=== PATIENT | female | born 1965 | race Caucasian/White ===

== ENCOUNTER 2017-03-10 12:10 | Emergency (ER) | payer OTHER, SELFPAY ==
[2017-03-10 12:42] LABS: #Basophils 0.1 thou/uL (0.0-0.2); #Eosinphils 0.2 thou/uL (0.0-0.7); #Lymphocytes 1.2 thou/uL (1.20-3.40); #Monocytes 0.8 thou/uL (0.11-0.59); #Neutrophils 4.7 thou/uL (1.40-6.50); %Basophils 0.7 % (0.0-1.0); %Eosinophils 2.3 % (0.0-10.0); %Lymphocytes 17.5 % (21.0-51.0); %Monocytes 10.9 % (0.0-10.0); Mean Platelet Volume 6.4 fL (7.4-10.4); Red Blood Cell (RBC) Count 4.41 mill/uL (4.20-5.40); White Blood Cell (WBC) Count 6.9 thou/uL (4.8-10.8)
[2017-03-10 13:07] LABS: ALT (SGPT) 28 U/L (8-55); AST (SGOT) 38 U/L (5-34); Alkaline Phosphatase 172 U/L (40-150); Anion Gap 12 mmol/L (10-20); BUN (Urea Nitrogen) 4 mg/dL (9.8-20.1); Bilirubin, Total 1.2 mg/dL (0.2-1.2); Calc. Creatinine Clearance 0 mL/min (70-130); Carbon Dioxide 30 mmol/L (22-29); Chloride 102 mmol/L (98-107); Estimated GFR-MDRD 59; Globulin 3.6 g/dL (2.4-3.5); Salicylate Less than 8.0 mg/dL (15.0-30.0)
[2017-03-10 14:11] LABS: Bilirubin Negative (Negative); Blood, Urine Negative (Negative); Glucose, Urine (Dipstick) Negative (Negative); Ketone, Urine Negative (Negative); Nitrite Negative (Negative); Protein, Urine (Dipstick) Negative (Neg-Trace); Urobilinogen 0.2 mg/dL (0.2-1.0)
[2017-03-10 14:18] LABS: Bacteria/HPF None Seen HPF (None Seen); Hyaline Casts/LPF 0-3 HYALINE CAST LPF (0-3 Hyaline); RBC/HPF 0-3 HPF (0-3); Squamous Epithelial 0-3 HPF (0-3)
[2017-03-10 14:23] LABS: Amphetamine Not Detected (NotDetected); Methadone Not Detected (NotDetected); Methamphetamine Not Detected (NotDetected)
[2017-03-10] MEDS ORDERED: Ibuprofen 800 MG TAB ONE (19:34)
== END 2017-03-10 20:23 | disposition home or self-care (01) ==
LOC: ERS 12:10
DX: F31.9 Bipolar disorder, unspecified (principal); K21.9 Gastro-esophageal reflux disease without esophagitis; K74.60 Unspecified cirrhosis of liver; F41.9 Anxiety disorder, unspecified; Z79.891 Long term (current) use of opiate analgesic; Z79.899 Other long term (current) drug therapy
CPT/HCPCS: 36415; 80053; 80306; 80307; 81003; 81015; 84443; 85025; 93005

== ENCOUNTER 2017-09-30 01:39 | Inpatient (IN) | payer SELFPAY ==
[2017-09-30] MEDS ORDERED: Morphine 4 MG/ML VIAL ONE (02:51)
[2017-09-30] MEDS ORDERED: Morphine 4 MG/ML VIAL SLOW IVP PRN (04:35)
[2017-09-30 06:03] VITALS: BMI 31.8
[2017-09-30 06:05] LABS: Lactic Acid 3.2 mmol/L (0.5-2.2)
[2017-09-30 06:08] LABS: Anion Gap 9 mmol/L (10-20); BUN (Urea Nitrogen) 4 mg/dL (9.8-20.1); Calc. Creatinine Clearance 122 mL/min (70-130); Calcium 8.3 mg/dL (7.8-10.44); Carbon Dioxide 34 mmol/L (22-29); Chloride 96 mmol/L (98-107); Estimated GFR-MDRD 83; Glucose 101 mg/dL (70-105); Magnesium 1.8 mg/dL (1.6-2.6); Phosphorus 2.9 mg/dL (2.3-4.7); Potassium 3.3 mmol/L (3.5-5.1); Sodium 136 mmol/L (136-145)
[2017-09-30] MEDS ORDERED: Chloraseptic Spray 180 ml Bottle PO PRN (07:02)
[2017-09-30] MEDS ORDERED: Senokot 8.6 MG TAB PO PRN (07:02)
[2017-09-30] MEDS ORDERED: Sodium Chloride 0.65% Nasal 44 ML BOT EA NARE PRN (07:02)
[2017-09-30] MEDS ORDERED: Loperamide HCl 2 MG CAP PO PRN (07:02)
[2017-09-30] MEDS ORDERED: Zolpidem Tartrate 5 MG TAB PO PRN (07:02)
[2017-09-30] MEDS ORDERED: Ondansetron ODT 4 MG TAB PO PRN (07:02)
[2017-09-30] MEDS ORDERED: Milk Of Magnesia 30 ML UDCUP PO PRN (07:02)
[2017-09-30] MEDS ORDERED: Eucerin (Mineral Oil/Petrolatum,White) 30 gm Jar TOP PRN (07:02)
[2017-09-30] MEDS ORDERED: Ondansetron HCl/PF 4 MG/2 ML Vial IVP PRN (07:02)
[2017-09-30] MEDS ORDERED: Loratadine 10 MG TAB PO PRN (07:02)
[2017-09-30] MEDS ORDERED: Mag-Al 1200 mg/1200 mg/30 ML UDCUP PO PRN (07:02)
[2017-09-30] MEDS ORDERED: Acetaminophen 325 MG TAB PO PRN (07:02)
[2017-09-30] MEDS ORDERED: Artificial Tears 18 DROP/0.9 ML EA EYE PRN (07:02)
[2017-09-30] MEDS ORDERED: hydrALAZINE 20 MG/ML VIAL SLOW IVP PRN (07:02)
[2017-09-30] MEDS ORDERED: cefTRIAXone\\ROCEPHIN 1 GM in Sodium Chloride 0.9% 100 ML IVPB SCH (07:15)
[2017-09-30] MEDS: cefTRIAXone\\ROCEPHIN 1 GM, Syringe 0.4 ML in Sterile Water 9.6 ML SLOW IVP SCH (08:11)
[2017-09-30] MEDS: Cyanocobalamin (Vitamin B-12) 1,000 MCG TAB PO SCH (08:16)
[2017-09-30] MEDS: clonazePAM 0.5 MG TAB PO SCH ×2 (08:17→19:58)
[2017-09-30] MEDS: Famotidine 20 MG TAB PO SCH ×2 (08:17→19:58)
[2017-09-30] MEDS: Venlafaxine HCl XR 150 MG CAP PO SCH (08:20)
[2017-09-30] MEDS: Saccharomyces boulardii 250 MG CAP PO SCH (08:21)
[2017-09-30] MEDS: Diabetic Tussin 200 MG/10 ML UDCUP PO PRN ×2 (08:35→19:58)
--- NOTE | 2017-09-30 10:57 | HP ---
PRIMARY CARE PHYSICIAN: [facility] call admission. MARYAM FOR ADMISSION: Transfer from [facility] for suspected pneumonia, urinary tract in fection, and diarrhea. HISTORY OF PRESENT ILLNESS: A 52-year-old female who has underlying history of chronic hepatitis C a s well as underlying history of anxiety and depression who initially went to [facility]. She reported in triage area that she was having abdominal pain and patient gave history of high grade fever and diarrhea for the last several days. Patient reports that she was having diarrhea almost 20 times for the last 7 days. She also describes that diarrhea was black in nature. She did not took Pepto-Bismol. The patient was also having feve r every day up to 103.1 for last 7 days off and on. The patient reported increased frequency of urin ation, but she denied any hematuria or dysuria. She was also having generalized 10/10 abdominal pain . Patient denies any recent antibiotic exposure. She denies any chest pain and palpitations, but sh e was feeling dizziness and lightheadedness. She denies any hematochezia. She denies any hematemesi s. She denies any focal motor or sensory symptoms. When she went to [facility], patient was completely hemodynamically stable. She was not having any fever. Her vitals were stable as well. She had only low-grade fever up to 99.5 and erick ent had lactic acidosis and that is why they suspected SBP and the patient's chest x-ray also suspect ed some atelectasis versus infiltration and patient was complaining of cough without any sputum and t hat is why patient was given Rocephin and patient was given morphine, Benadryl and DuoNeb therapy and subsequently she was transferred to our hospital for admission. The patient denies any hemoptysis. She denies any lower extremity edema or calf tenderness. She den ies any pleuritic chest pain. She denies any pleurisy. She denies any shortness of breath. REVIEW OF SYSTEMS: The following complete review of systems was negative, unless otherwise mentioned in the HPI or below: Constitutional: Weight loss or gain, ability to conduct usual activities. Skin: Rash, itching. Eyes: Double vision, pain. ENT/Mouth: Nose bleeding, neck stiffness, pain, tenderness. Cardiovascular: Palpitations, dyspnea on exertion, orthopnea. Respiratory: Shortness of breath, wheezing, cough, hemoptysis, fever or night sweats. Gastrointestinal: Poor appetite, abdominal pain, heartburn, nausea, vomiting, constipation, or diarr hea. Genitourinary: Urgency, frequency, dysuria, nocturia. Musculoskeletal: Pain, swelling. Neurologic/Psychiatric: Anxiety, depression. Allergy/Immunologic: Skin rash, bleeding tendency. Please see my HPI for pertinent positive and negative. All other review of systems reviewed and nega tive except as mentioned in the HPI. EMERGENCY ROOM COURSE: At [facility], the patient is given Rocephin 2 gram, morphine 4 mg, Benadryl 12.5 mg, DuoNeb therapy and in our emergency room, patient required another dose of morp dara 4 mg. PAST MEDICAL HISTORY: Chronic hepatitis C, history of cirrhosis, history of C. diff infection in the past, history of TIPS procedure done in [place], gastroesophageal reflux disease. PAST SURGICAL HISTORY: Appendicectomy, hysterectomy, cholecystectomy, tubal ligation, TIPS procedure , spine surgery. PAST PSYCHIATRIC HISTORY: Anxiety and depression. SOCIAL HISTORY: Patient smokes about half pack per day. She denies any alcohol abuse. She denies a ny other illicit drug abuse. FAMILY HISTORY: Mother has history of COPD and CAD. Father had no medical problem. ALLERGIES: SOMA, PINEAPPLE, and GRAPE FRUIT. CURRENT HOME MEDICATIONS: Tylenol #3 one tablet t.i.d. p.r.n., ProAir HFA 2 puffs q.4 hourly p.r.n., clonazepam 0.5 mg p.o. b.i.d., vitamin B12 2500 mcg p.o. daily, trazodone 50 mg p.o. at bedtime, and venlafaxine 150 mg p.o. daily. PHYSICAL EXAMINATION: VITAL SIGNS: In our emergency room, blood pressure 138/81, pulse 102, respiratory rate 22, temperatu re 98.6, saturation 91% on room air, and weight 84.8 kilograms. GENERAL: The patient is currently alert, awake, no obvious acute distress. HEAD: Normocephalic, atraumatic. EYES: Pupils round, reactive to light. Extraocular muscle intact. ENT: Oropharynx within normal limits. Moist mucous membranes. No oral lesion, no pharyngeal erythe ma, no exudate. NECK: Supple, no JVD, no thyromegaly, no carotid bruit, no jugular venous distention. LUNGS: Clear to auscultation. Few end expiratory wheezing heard. Air entry reduced at base, especi ally on the left side. CARDIAC: S1 and S2 regular without any murmur. ABDOMEN: Soft, bowel sounds present, mild discomfort noted, but no peritoneal sign, no guarding, no rigidity, no rebound, no suprapubic tenderness. BACK: Examination is unremarkable, no CVA tenderness. EXTREMITIES: Upper extremity passive movement of all joints are normal. Lower extremities: No brain a. Good peripheral pulsation. SKIN: No skin rash. HEMATOLOGICAL SYSTEM: No lymphadenopathy. PSYCHIATRIC: Normal affect. NEUROLOGIC: Patient is alert and oriented x3. Cranial nerves II-XII intact. Motor and sensation wi thin normal limits. No focal neurological deficit noted. No asterixis. SIGNIFICANT LABORATORY DATA AND IMAGING DATA: CBC: WBC 11.8, hemoglobin 13.2, MCV 101, platelet 169 with left shift. INR 1.5. BMP: Sodium 138, potassium 3.2, chloride 96, carbon dioxide 30, anion g ap 15, BUN less than 4, creatinine 0.71, glucose 95, calcium 9.0. LFT: Bilirubin 2.1, AST 37, ALT 1 9, alkaline phosphatase 281, albumin 3.0. Lipase 15, CK-MB 0.9, troponin I less than 0.010. Ammonia level 28. Lactic acid 4.8. Urinalysis suggestive of UTI. Stool for guaiac negative. ASSESSMENT AND PLAN/IMPRESSION: 1. Urinary tract infection. The patient is kept on Rocephin and Levaquin therapy. We will follow u p on urine culture result and change antibiotic therapy accordingly. 2. Left lower lobe community-acquired pneumonia with bronchitis. The patient is already on Rocephin and Levaquin therapy, Robitussin cough syrup will be given p.r.n. basis. The patient will be given DuoNeb therapy as needed basis. 3. Macrocytic anemia. We will continue vitamin B12 2500 mcg p.o. daily and we will add folic acid 1 mg p.o. daily. 4. Coagulopathy due to chronic liver disease. We will avoid any antiplatelet or anticoagulant thera py. 5. Hypokalemia. Patient will be given potassium supplementation phosphorus and magnesium level is n ormal. 6. Lactic acidosis, likely due to underlying sepsis. We will repeat lactic acid level tomorrow. Th e patient is already on antibiotic therapy with Rocephin and Levaquin. 7. Diarrhea. We will check serial stool for C. diff and infection workup and based on that result, we will decide next step of treatment. We will continue with the probiotic therapy. 8. Abnormal liver function tests. Patient had abnormal transaminitis, hypoalbuminemia, coagulopathy , likely due to chronic liver disease from hepatitis C. 9. Anxiety and depression. We will continue patient's home medications; clonazepam, trazodone, and venlafaxine as per home dosage. 10. Deep venous thrombosis prophylaxis. No Lovenox because of mild coagulopathy. 11. Gastrointestinal prophylaxis, Pepcid 20 mg p.o. b.i.d. 12. Code status: The patient is FULL CODE. Patient does not have any surrogate decision maker. Disposition plan based on clinical course. We are expecting patient's stay in hospital more than 2 m idnights. Plan of care discussed with the patient. At this point our suspicious for SBP is extremel y unlikely, but patient will be given empiric antibiotic therapy. Based on my examination, patient d oes not have any obvious ascites to do any therapeutic or diagnostic paracentesis.
[2017-09-30] MEDS: HYDROcodone/Acetaminophen 10/325 mg Tablet PO PRN ×4 (11:28→23:55)
[2017-09-30] MEDS: traZODone HCl 50 MG TAB PO SCH (19:58)
[2017-10-01] MEDS: HYDROcodone/Acetaminophen 10/325 mg Tablet PO PRN ×5 (03:57→20:37)
[2017-10-01 05:39] LABS: #Basophils 0.1 thou/uL (0.0-0.2); #Eosinphils 0.5 thou/uL (0.0-0.7); #Lymphocytes 1.3 thou/uL (1.20-3.40); #Monocytes 0.7 thou/uL (0.11-0.59); #Neutrophils 3.7 thou/uL (1.40-6.50); %Eosinophils 7.9 % (0.0-10.0); %Lymphocytes 21.3 % (21.0-51.0); %Monocytes 10.5 % (0.0-10.0); %Neutrophils 59.2 % (42.0-75.0); Hemoglobin 12.5 g/dL (12.0-16.0); Mean Corpuscular HGB CONC 33.1 g/dL (32.0-36.0); Mean Platelet Volume 7.6 fL (7.4-10.4); Platelet Count 173 thou/uL (130-400); RBC Distribution Width 15.7 % (11.5-14.5); Red Blood Cell (RBC) Count 3.37 mill/uL (4.20-5.40); White Blood Cell (WBC) Count 6.3 thou/uL (4.8-10.8)
[2017-10-01 05:52] LABS: ALT (SGPT) 15 U/L (8-55); AST (SGOT) 44 U/L (5-34); Albumin 2.7 g/dL (3.5-5.0); Alkaline Phosphatase 248 U/L (40-150); Anion Gap 12 mmol/L (10-20); BUN (Urea Nitrogen) 4 mg/dL (9.8-20.1); Calc. Creatinine Clearance 131 mL/min (70-130); Calcium 8.5 mg/dL (7.8-10.44); Carbon Dioxide 32 mmol/L (22-29); Chloride 96 mmol/L (98-107); Estimated GFR-MDRD Greater than 90; Globulin 3.6 g/dL (2.4-3.5); Glucose 110 mg/dL (70-105); Potassium 3.6 mmol/L (3.5-5.1); Protein, Total 6.3 g/dL (6.0-8.3); Sodium 136 mmol/L (136-145)
[2017-10-01] MEDS: cefTRIAXone\\ROCEPHIN 1 GM, Syringe 0.4 ML in Sterile Water 9.6 ML SLOW IVP SCH (07:36)
[2017-10-01] MEDS: clonazePAM 0.5 MG TAB PO SCH ×2 (07:36→20:37)
[2017-10-01] MEDS: Saccharomyces boulardii 250 MG CAP PO SCH (07:36)
[2017-10-01] MEDS: Folic Acid 1 MG TAB PO SCH (07:37)
[2017-10-01] MEDS: Famotidine 20 MG TAB PO SCH ×2 (07:37→20:37)
[2017-10-01] MEDS: Venlafaxine HCl XR 150 MG CAP PO SCH (07:37)
[2017-10-01] MEDS: Cyanocobalamin (Vitamin B-12) 1,000 MCG TAB PO SCH (07:41)
[2017-10-01] MEDS: Diabetic Tussin 200 MG/10 ML UDCUP PO PRN ×3 (07:42→23:26)
--- NOTE | 2017-10-01 10:32 | PDOC.PN ---
- Subjective Encounter Start Date: 10/01/17 Encounter Start Time: 09:40 Patient seen and examined for uti. No new complaints. No overnight events - Objective Resuscitation Status: Resuscitation Status FULL:Full Resuscitation MAR Reviewed: Yes Vital Signs & Weight: Vital Signs (12 hours) Temp Pulse Resp BP BP Pulse Ox 10/01/17 08:00 97.8 F 79 18 97/63 93 L 10/01/17 04:30 96 10/01/17 04:21 97.5 F L 86 20 114/72 94 L Weight Admit Weight 191 lb Weight 191 lb I&O: 09/30/17 10/01/17 10/02/17 06:59 06:59 06:59 Intake Total 240 720 Output Total 0 Balance 240 720 Result Diagrams: 10/01/17 04:25 10/01/17 04:25 Additional Labs: Accuchecks 09/30/17 23:45 POC Glucose 95 Phys Exam - Physical Examination Constitutional: NAD HEENT: PERRLA, moist MMs, sclera anicteric Neck: no JVD, supple Respiratory: no wheezing, no rales, no rhonchi Cardiovascular: RRR, no significant murmur, no rub Gastrointestinal: soft, non-tender, no distention, positive bowel sounds Musculoskeletal: no edema, pulses present Neurological: non-focal, normal sensation, moves all 4 limbs Psychiatric: normal affect, A&O x 3 Skin: no rash, normal turgor Dx/Plan (1) Community acquired bacterial pneumonia Code(s): J15.9 - UNSPECIFIED BACTERIAL PNEUMONIA Status: Acute (2) Hypokalemia Code(s): E87.6 - HYPOKALEMIA Status: Acute (3) Lactic acidosis Code(s): E87.2 - ACIDOSIS Status: Acute (4) UTI (urinary tract infection) Status: Acute (5) Abnormal LFTs Code(s): R94.5 - ABNORMAL RESULTS OF LIVER FUNCTION STUDIES Status: Chronic (6) Anxiety and depression Code(s): F41.9 - ANXIETY DISORDER, UNSPECIFIED; F32.9 - MAJOR DEPRESSIVE DISORDER, SINGLE EPISODE, UNSPECIFIED Status: Chronic (7) Chronic hepatitis C with cirrhosis Code(s): B18.2 - CHRONIC VIRAL HEPATITIS C; K74.60 - UNSPECIFIED CIRRHOSIS OF LIVER Status: Chronic (8) Macrocytosis Code(s): D75.89 - OTHER SPECIFIED DISEASES OF BLOOD AND BLOOD-FORMING ORGANS Status: Chronic (9) Obesity (BMI 30.0-34.9) Code(s): E66.9 - OBESITY, UNSPECIFIED Status: Chronic (10) Seizure disorder Code(s): G40.909 - EPILEPSY, UNSP, NOT INTRACTABLE, WITHOUT STATUS EPILEPTICUS Status: Chronic - Plan cont current plan of care, continue antibiotics * medication reviewed as below * symptomatic treatment * continue rocephin and levaquin * will follow culture * expecting discharge soon * she is doing well, her pain controlled. Review of Systems - Review of Systems Constitutional: negative: fever, chills, sweats, weakness, malaise, other Eyes: negative: Pain, Vision Change, Conjunctivae Inflammation, Eyelid Inflammation, Redness, Other ENT: negative: Ear Pain, Ear Discharge, Nose Pain, Nose Discharge, Nose Congestion, Mouth Pain, Mouth Swelling, Throat Pain, Throat Swelling, Other Respiratory: negative: Cough, Dry, Shortness of Breath, Hemoptysis, SOB with Excertion, Pleuritic Pain, Sputum, Wheezing Cardiovascular: negative: chest pain, palpitations, orthopnea, paroxysmal nocturnal dyspnea, edema, light headedness, other Gastrointestinal: negative: Nausea, Vomiting, Abdominal Pain, Diarrhea, Constipation, Melena, Hematochezia, Other Genitourinary: negative: Dysuria, Frequency, Incontinence, Hematuria, Retention , Other Musculoskeletal: negative: Neck Pain, Shoulder Pain, Arm Pain, Back Pain, Hand Pain, Leg Pain, Foot Pain, Other Skin: negative: Rash, Lesions, Win, Bruising, Other - Medications/Allergies Allergies/Adverse Reactions: Allergies Allergy/AdvReac Type Severity Reaction Status Date / Time grapefruit Allergy Rash Verified 05/12/15 08:58 carisoprodol [From Soma] AdvReac Verified 09/16/16 09:52 pineapple AdvReac Verified 05/12/15 08:58 Medications: Current Medications Acetaminophen (Tylenol) 650 mg PO Q4H PRN PRN Reason: Headache/Fever or Pain Hydrocodone Bitart/Acetaminophen ([place] 10/325) 1 tab PO Q4H PRN PRN Reason: Moderate Pain (4-6) Last Admin: 10/01/17 07:44 Dose: 1 tab Al Hydroxide/Mg Hydroxide (Maalox) 30 ml PO Q6H PRN PRN Reason: Heartburn or Indigestion Albuterol/Ipratropium (Duoneb) 3 ml NEB Q6H PRN PRN Reason: SOB &/or Wheezing Artificial Tears (Tears Naturale) 0 drop EA EYE PRN PRN PRN Reason: Dry Eyes Clonazepam (Klonopin) 0.5 mg PO BID [facility] Last Admin: 10/01/17 07:36 Dose: 0.5 mg Cyanocobalamin (Vitamin B-12) 2,500 mcg PO DAILY [facility] Last Admin: 10/01/17 07:41 Dose: 2,500 mcg Famotidine (Pepcid) 20 mg PO BID [facility] Last Admin: 10/01/17 07:37 Dose: 20 mg Folic Acid (Folvite) 1 mg PO DAILY [facility] Last Admin: 10/01/17 07:37 Dose: 1 mg Guaifenesin (Robitussin Sf) 200 mg PO Q4H PRN PRN Reason: Cough Last Admin: 10/01/17 07:42 Dose: 200 mg Hydralazine HCl (Apresoline) 10 mg SLOW IVP Q4H PRN PRN Reason: Systolic BP > 180 Levofloxacin 500 mg/ Device 100 mls @ 100 mls/hr IVPB Q24HR [facility] Last Admin: 10/01/17 06:13 Dose: 100 mls Ceftriaxone Sodium 1 gm/ (Syringe 0.4 ml/ Sterile Water) 10 mls @ 120 mls/hr SLOW IVP 0800 [facility] Last Admin: 10/01/17 07:36 Dose: 10 mls Loperamide HCl (Imodium) 2 mg PO PRN PRN PRN Reason: Diarrhea/Loose Stools Loratadine (Claritin) 10 mg PO DAILYPRN PRN PRN Reason: Sinus Symptoms Magnesium Hydroxide (Milk Of Magnesium) 30 ml PO DAILYPRN PRN PRN Reason: Constipation Mineral Oil/White Petrolatum (Eucerin Cream) 0 gm TOP BIDPRN PRN PRN Reason: Dry Skin Ondansetron HCl (Zofran Odt) 4 mg PO Q6H PRN PRN Reason: Nausea/Vomiting Ondansetron HCl (Zofran) 4 mg IVP Q6H PRN PRN Reason: Nausea/Vomiting Phenol (Chloraseptic [place] 180 Ml Bot) 0 ml PO PRN PRN PRN Reason: Sore Throat Saccharomyces Boulardii (Florastor) 250 mg PO DAILY [facility] Last Admin: 10/01/17 07:36 Dose: 250 mg Senna (Senokot) 2 tab PO HSPRN PRN PRN Reason: Constipation Sodium Chloride ([place] Nasal [place] 0.65%) 0 ml EA NARE QIDPRN PRN PRN Reason: Nasal Congestion Trazodone HCl (Desyrel) 50 mg PO [facility] Last Admin: 09/30/17 19:58 Dose: 50 mg Venlafaxine HCl (Effexor Xr) 150 mg PO DAILY [facility] Last Admin: 10/01/17 07:37 Dose: 150 mg Zolpidem Tartrate (Ambien) 5 mg PO HSPRN PRN PRN Reason: Insomnia
[2017-10-01] MEDS: traZODone HCl 50 MG TAB PO SCH (20:37)
[2017-10-02] MEDS: HYDROcodone/Acetaminophen 10/325 mg Tablet PO PRN ×6 (00:36→21:21)
[2017-10-02] MEDS: cefTRIAXone\\ROCEPHIN 1 GM, Syringe 0.4 ML in Sterile Water 9.6 ML SLOW IVP SCH (08:34)
[2017-10-02] MEDS: Cyanocobalamin (Vitamin B-12) 1,000 MCG TAB PO SCH (08:35)
[2017-10-02] MEDS: Venlafaxine HCl XR 150 MG CAP PO SCH (08:35)
[2017-10-02] MEDS: clonazePAM 0.5 MG TAB PO SCH ×2 (08:38→21:21)
[2017-10-02] MEDS: Folic Acid 1 MG TAB PO SCH (08:38)
[2017-10-02] MEDS: Famotidine 20 MG TAB PO SCH ×2 (08:39→21:20)
[2017-10-02] MEDS: Saccharomyces boulardii 250 MG CAP PO SCH (08:39)
--- NOTE | 2017-10-02 09:47 | PDOC.PN ---
- Subjective Encounter Start Date: 10/02/17 Encounter Start Time: 09:10 Patient seen and examined for UTI. No new complaints. No overnight events - Objective Resuscitation Status: Resuscitation Status FULL:Full Resuscitation MAR Reviewed: Yes Vital Signs & Weight: Vital Signs (12 hours) Temp Pulse Resp BP BP Pulse Ox 10/02/17 07:38 97.9 F 75 18 98/64 96 10/02/17 04:00 98.0 F 79 20 105/70 92 L 10/02/17 00:00 97.9 F 86 20 103/67 94 L Weight Admit Weight 191 lb Weight 191 lb I&O: 10/01/17 10/02/17 10/03/17 06:59 06:59 06:59 Intake Total 720 Balance 720 Result Diagrams: 10/01/17 04:25 10/01/17 04:25 Phys Exam - Physical Examination Constitutional: NAD HEENT: PERRLA, moist MMs, sclera anicteric Neck: no JVD, supple Respiratory: no wheezing, no rales, no rhonchi Cardiovascular: RRR, no significant murmur, no rub Gastrointestinal: soft, non-tender, no distention, positive bowel sounds Musculoskeletal: no edema, pulses present Neurological: non-focal, normal sensation, moves all 4 limbs Lymphatic: no nodes Psychiatric: normal affect, A&O x 3 Skin: no rash, normal turgor Dx/Plan (1) Community acquired bacterial pneumonia Code(s): J15.9 - UNSPECIFIED BACTERIAL PNEUMONIA Status: Acute (2) Hypokalemia Code(s): E87.6 - HYPOKALEMIA Status: Acute (3) Lactic acidosis Code(s): E87.2 - ACIDOSIS Status: Acute (4) UTI (urinary tract infection) Status: Acute (5) Abnormal LFTs Code(s): R94.5 - ABNORMAL RESULTS OF LIVER FUNCTION STUDIES Status: Chronic (6) Anxiety and depression Code(s): F41.9 - ANXIETY DISORDER, UNSPECIFIED; F32.9 - MAJOR DEPRESSIVE DISORDER, SINGLE EPISODE, UNSPECIFIED Status: Chronic (7) Chronic hepatitis C with cirrhosis Code(s): B18.2 - CHRONIC VIRAL HEPATITIS C; K74.60 - UNSPECIFIED CIRRHOSIS OF LIVER Status: Chronic (8) Macrocytosis Code(s): D75.89 - OTHER SPECIFIED DISEASES OF BLOOD AND BLOOD-FORMING ORGANS Status: Chronic (9) Obesity (BMI 30.0-34.9) Code(s): E66.9 - OBESITY, UNSPECIFIED Status: Chronic (10) Seizure disorder Code(s): G40.909 - EPILEPSY, UNSP, NOT INTRACTABLE, WITHOUT STATUS EPILEPTICUS Status: Chronic - Plan cont current plan of care, continue antibiotics * follow on culture result * continue today rocephin and levaquin * tomorrow consider discharge on oral levaquin * medication reviewed as below * symptomatic treatment * ambulate. Review of Systems - Review of Systems Constitutional: negative: fever, chills, sweats, weakness, malaise, other Eyes: negative: Pain, Vision Change, Conjunctivae Inflammation, Eyelid Inflammation, Redness, Other ENT: negative: Ear Pain, Ear Discharge, Nose Pain, Nose Discharge, Nose Congestion, Mouth Pain, Mouth Swelling, Throat Pain, Throat Swelling, Other Respiratory: negative: Cough, Dry, Shortness of Breath, Hemoptysis, SOB with Excertion, Pleuritic Pain, Sputum, Wheezing Cardiovascular: negative: chest pain, palpitations, orthopnea, paroxysmal nocturnal dyspnea, edema, light headedness, other Gastrointestinal: negative: Nausea, Vomiting, Abdominal Pain, Diarrhea, Constipation, Melena, Hematochezia, Other Genitourinary: negative: Dysuria, Frequency, Incontinence, Hematuria, Retention , Other Musculoskeletal: negative: Neck Pain, Shoulder Pain, Arm Pain, Back Pain, Hand Pain, Leg Pain, Foot Pain, Other Skin: negative: Rash, Lesions, Win, Bruising, Other - Medications/Allergies Allergies/Adverse Reactions: Allergies Allergy/AdvReac Type Severity Reaction Status Date / Time grapefruit Allergy Rash Verified 05/12/15 08:58 carisoprodol [From Soma] AdvReac Verified 09/16/16 09:52 pineapple AdvReac Verified 05/12/15 08:58 Medications: Current Medications Acetaminophen (Tylenol) 650 mg PO Q4H PRN PRN Reason: Headache/Fever or Pain Hydrocodone Bitart/Acetaminophen ([place] 10/325) 1 tab PO Q4H PRN PRN Reason: Moderate Pain (4-6) Last Admin: 10/02/17 08:41 Dose: 1 tab Al Hydroxide/Mg Hydroxide (Maalox) 30 ml PO Q6H PRN PRN Reason: Heartburn or Indigestion Albuterol/Ipratropium (Duoneb) 3 ml NEB Q6H PRN PRN Reason: SOB &/or Wheezing Artificial Tears (Tears Naturale) 0 drop EA EYE PRN PRN PRN Reason: Dry Eyes Clonazepam (Klonopin) 0.5 mg PO BID [facility] Last Admin: 10/02/17 08:38 Dose: 0.5 mg Cyanocobalamin (Vitamin B-12) 2,500 mcg PO DAILY [facility] Last Admin: 10/02/17 08:35 Dose: 2,500 mcg Famotidine (Pepcid) 20 mg PO BID [facility] Last Admin: 10/02/17 08:39 Dose: 20 mg Folic Acid (Folvite) 1 mg PO DAILY [facility] Last Admin: 10/02/17 08:38 Dose: 1 mg Guaifenesin (Robitussin Sf) 200 mg PO Q4H PRN PRN Reason: Cough Last Admin: 10/01/17 23:26 Dose: 200 mg Hydralazine HCl (Apresoline) 10 mg SLOW IVP Q4H PRN PRN Reason: Systolic BP > 180 Levofloxacin 500 mg/ Device 100 mls @ 100 mls/hr IVPB Q24HR [facility] Last Admin: 10/02/17 06:09 Dose: 100 mls Ceftriaxone Sodium 1 gm/ (Syringe 0.4 ml/ Sterile Water) 10 mls @ 120 mls/hr SLOW IVP 0800 [facility] Last Admin: 10/02/17 08:34 Dose: 10 mls Loperamide HCl (Imodium) 2 mg PO PRN PRN PRN Reason: Diarrhea/Loose Stools Loratadine (Claritin) 10 mg PO DAILYPRN PRN PRN Reason: Sinus Symptoms Magnesium Hydroxide (Milk Of Magnesium) 30 ml PO DAILYPRN PRN PRN Reason: Constipation Mineral Oil/White Petrolatum (Eucerin Cream) 0 gm TOP BIDPRN PRN PRN Reason: Dry Skin Ondansetron HCl (Zofran Odt) 4 mg PO Q6H PRN PRN Reason: Nausea/Vomiting Ondansetron HCl (Zofran) 4 mg IVP Q6H PRN PRN Reason: Nausea/Vomiting Phenol (Chloraseptic [place] 180 Ml Bot) 0 ml PO PRN PRN PRN Reason: Sore Throat Saccharomyces Boulardii (Florastor) 250 mg PO DAILY [facility] Last Admin: 10/02/17 08:39 Dose: 250 mg Senna (Senokot) 2 tab PO HSPRN PRN PRN Reason: Constipation Sodium Chloride ([place] Nasal [place] 0.65%) 0 ml EA NARE QIDPRN PRN PRN Reason: Nasal Congestion Trazodone HCl (Desyrel) 50 mg PO [facility] Last Admin: 10/01/17 20:37 Dose: 50 mg Venlafaxine HCl (Effexor Xr) 150 mg PO DAILY [facility] Last Admin: 10/02/17 08:35 Dose: 150 mg Zolpidem Tartrate (Ambien) 5 mg PO HSPRN PRN PRN Reason: Insomnia
[2017-10-02] MEDS: Diabetic Tussin 200 MG/10 ML UDCUP PO PRN (21:21)
[2017-10-02] MEDS: traZODone HCl 50 MG TAB PO SCH (21:21)
[2017-10-03] MEDS: HYDROcodone/Acetaminophen 10/325 mg Tablet PO PRN ×4 (01:14→12:45)
[2017-10-03] MEDS: Diabetic Tussin 200 MG/10 ML UDCUP PO PRN (04:53)
[2017-10-03] MEDS: Cyanocobalamin (Vitamin B-12) 1,000 MCG TAB PO SCH (07:58)
[2017-10-03] MEDS: Famotidine 20 MG TAB PO SCH (07:59)
[2017-10-03] MEDS: Venlafaxine HCl XR 150 MG CAP PO SCH (07:59)
[2017-10-03] MEDS: Saccharomyces boulardii 250 MG CAP PO SCH (07:59)
[2017-10-03] MEDS: clonazePAM 0.5 MG TAB PO SCH (08:00)
[2017-10-03] MEDS: Folic Acid 1 MG TAB PO SCH (08:00)
[2017-10-03] MEDS: cefTRIAXone\\ROCEPHIN 1 GM, Syringe 0.4 ML in Sterile Water 9.6 ML SLOW IVP SCH (08:06)
--- NOTE | 2017-10-03 09:12 | PDOC.PN ---
- Subjective Encounter Start Date: 10/03/17 Encounter Start Time: 09:12 Subjective: feels good.walking in hallways - Objective Resuscitation Status: Resuscitation Status FULL:Full Resuscitation MAR Reviewed: Yes Vital Signs & Weight: Vital Signs (12 hours) Temp Pulse Resp BP Pulse Ox 10/03/17 07:46 97.3 F L 77 16 99/65 95 Weight Admit Weight 191 lb Weight 191 lb I&O: 10/02/17 10/03/17 10/04/17 06:59 06:59 06:59 Intake Total 1640 Balance 1640 Result Diagrams: 10/01/17 04:25 10/01/17 04:25 Additional Labs: Microbiology 03/08/15 18:55 Urine indwelling catheter Urine Culture - Final NO GROWTH AT 36 HOURS 09/30/17 21:10 Stool Stool Culture - Final 09/30/17 21:10 Stool Rapid Parasite Screen - Final 09/30/17 21:10 Stool Campylobacter Antigen Assay - Final 09/30/17 21:10 Stool Shiga Toxin Test - Final 09/30/17 21:10 Stool C. difficile GDH Antigen & Toxins - Final 09/29/17 23:00 Stool - Pending Stool Occult Blood (ADRIAN) - Final 09/29/17 00:00 Venous blood - Left Arm Blood Culture - Final Bacillus species,NOT anthracis 09/29/17 23:58 Venous blood - Left Hand Blood Culture - Preliminary NO GROWTH AT 48 HOURS Phys Exam - Physical Examination Constitutional: NAD HEENT: PERRLA, moist MMs, sclera anicteric, oral pharynx no lesions Neck: no nodes, no JVD, supple, full ROM Respiratory: no wheezing, no rales, no rhonchi, clear to auscultation bilateral Cardiovascular: RRR, no significant murmur, no rub Gastrointestinal: soft, non-tender, no distention, positive bowel sounds Musculoskeletal: no edema, pulses present Neurological: non-focal, normal sensation, moves all 4 limbs Psychiatric: normal affect, A&O x 3 Skin: no rash Dx/Plan (1) Community acquired bacterial pneumonia Code(s): J15.9 - UNSPECIFIED BACTERIAL PNEUMONIA Status: Acute (2) UTI (urinary tract infection) Status: Acute (3) Abnormal LFTs Code(s): R94.5 - ABNORMAL RESULTS OF LIVER FUNCTION STUDIES Status: Chronic (4) Anxiety and depression Code(s): F41.9 - ANXIETY DISORDER, UNSPECIFIED; F32.9 - MAJOR DEPRESSIVE DISORDER, SINGLE EPISODE, UNSPECIFIED Status: Chronic (5) Chronic hepatitis C with cirrhosis Code(s): B18.2 - CHRONIC VIRAL HEPATITIS C; K74.60 - UNSPECIFIED CIRRHOSIS OF LIVER Status: Chronic (6) Macrocytosis Code(s): D75.89 - OTHER SPECIFIED DISEASES OF BLOOD AND BLOOD-FORMING ORGANS Status: Chronic (7) Obesity (BMI 30.0-34.9) Code(s): E66.9 - OBESITY, UNSPECIFIED Status: Chronic (8) Seizure disorder Code(s): G40.909 - EPILEPSY, UNSP, NOT INTRACTABLE, WITHOUT STATUS EPILEPTICUS Status: Chronic - Plan PT/OT, DVT proph w/SCDs OK to DC.no evidence of infection.will stop ABx.all Cx negative -: extensive h/o C.Diff.avoid un-neccessary ABx -: OP GI referral when insurance/disability comes thru * . Review of Systems - Review of Systems Constitutional: negative: fever, chills, sweats, weakness, malaise, other Respiratory: negative: Cough, Dry, Shortness of Breath, Hemoptysis, SOB with Excertion, Pleuritic Pain, Sputum, Wheezing Cardiovascular: negative: chest pain, palpitations, orthopnea, paroxysmal nocturnal dyspnea, edema, light headedness, other Gastrointestinal: negative: Nausea, Vomiting, Abdominal Pain, Diarrhea, Constipation, Melena, Hematochezia, Other Genitourinary: negative: Dysuria, Frequency, Incontinence, Hematuria, Retention , Other Musculoskeletal: negative: Neck Pain, Shoulder Pain, Arm Pain, Back Pain, Hand Pain, Leg Pain, Foot Pain, Other Skin: negative: Rash, Lesions, Win, Bruising, Other Neurological: negative: Weakness, Numbness, Incoordination, Change in Speech, Confusion, Seizures, Other - Medications/Allergies Allergies/Adverse Reactions: Allergies Allergy/AdvReac Type Severity Reaction Status Date / Time grapefruit Allergy Rash Verified 05/12/15 08:58 carisoprodol [From Soma] AdvReac Verified 09/16/16 09:52 pineapple AdvReac Verified 05/12/15 08:58 Medications: Current Medications Acetaminophen (Tylenol) 650 mg PO Q4H PRN PRN Reason: Headache/Fever or Pain Hydrocodone Bitart/Acetaminophen ([place] 10/325) 1 tab PO Q4H PRN PRN Reason: Moderate Pain (4-6) Last Admin: 10/03/17 08:59 Dose: 1 tab Al Hydroxide/Mg Hydroxide (Maalox) 30 ml PO Q6H PRN PRN Reason: Heartburn or Indigestion Albuterol/Ipratropium (Duoneb) 3 ml NEB Q6H PRN PRN Reason: SOB &/or Wheezing Artificial Tears (Tears Naturale) 0 drop EA EYE PRN PRN PRN Reason: Dry Eyes Clonazepam (Klonopin) 0.5 mg PO BID [facility] Last Admin: 10/03/17 08:00 Dose: 0.5 mg Cyanocobalamin (Vitamin B-12) 2,500 mcg PO DAILY [facility] Last Admin: 10/03/17 07:58 Dose: 2,500 mcg Famotidine (Pepcid) 20 mg PO BID [facility] Last Admin: 10/03/17 07:59 Dose: 20 mg Folic Acid (Folvite) 1 mg PO DAILY [facility] Last Admin: 10/03/17 08:00 Dose: 1 mg Guaifenesin (Robitussin Sf) 200 mg PO Q4H PRN PRN Reason: Cough Last Admin: 10/03/17 04:53 Dose: 200 mg Hydralazine HCl (Apresoline) 10 mg SLOW IVP Q4H PRN PRN Reason: Systolic BP > 180 Levofloxacin 500 mg/ Device 100 mls @ 100 mls/hr IVPB Q24HR [facility] Last Admin: 10/03/17 06:12 Dose: 100 mls Ceftriaxone Sodium 1 gm/ (Syringe 0.4 ml/ Sterile Water) 10 mls @ 120 mls/hr SLOW IVP 0800 [facility] Last Admin: 10/03/17 08:06 Dose: 10 mls Loperamide HCl (Imodium) 2 mg PO PRN PRN PRN Reason: Diarrhea/Loose Stools Loratadine (Claritin) 10 mg PO DAILYPRN PRN PRN Reason: Sinus Symptoms Magnesium Hydroxide (Milk Of Magnesium) 30 ml PO DAILYPRN PRN PRN Reason: Constipation Mineral Oil/White Petrolatum (Eucerin Cream) 0 gm TOP BIDPRN PRN PRN Reason: Dry Skin Ondansetron HCl (Zofran Odt) 4 mg PO Q6H PRN PRN Reason: Nausea/Vomiting Ondansetron HCl (Zofran) 4 mg IVP Q6H PRN PRN Reason: Nausea/Vomiting Phenol (Chloraseptic [place] 180 Ml Bot) 0 ml PO PRN PRN PRN Reason: Sore Throat Saccharomyces Boulardii (Florastor) 250 mg PO DAILY [facility] Last Admin: 10/03/17 07:59 Dose: 250 mg Senna (Senokot) 2 tab PO HSPRN PRN PRN Reason: Constipation Sodium Chloride ([place] Nasal [place] 0.65%) 0 ml EA NARE QIDPRN PRN PRN Reason: Nasal Congestion Trazodone HCl (Desyrel) 50 mg PO [facility] Last Admin: 10/02/17 21:21 Dose: 50 mg Venlafaxine HCl (Effexor Xr) 150 mg PO DAILY [facility] Last Admin: 10/03/17 07:59 Dose: 150 mg Zolpidem Tartrate (Ambien) 5 mg PO HSPRN PRN PRN Reason: Insomnia
[2017-10-03] MEDS ORDERED: Clopidogrel Bisulfate 75 MG TAB ONE (10:12)
[2017-10-03 12:40] VITALS: BP 104/68; TEMP 98.1
--- NOTE | 2017-10-03 22:06 | DIS ---
DATE OF ADMISSION: 09/30/2017 DATE OF DISCHARGE: 10/03/2017 PRIMARY CARE PHYSICIAN: Armani Jackson M.D. DISCHARGE DISPOSITION: Home. DISCHARGE DIAGNOSES: 1. Abdominal pain and diarrhea. Clostridium difficile ruled out. 2. 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 3. History of chronic hepatitis C and liver cirrhosis. 4. Hypokalemia, resolved. 5. Lactic acidosis, resolved. 6. Abnormal liver function tests, which are chronic. 7. Anxiety and depression. 8. Macrocytosis. 9. Obesity with body mass index of 31.8 and seizure disorder. DISCHARGE MEDICATIONS: Tylenol as needed, clonazepam 0.5 mg p.o. b.i.d., trazodone 50 mg at bedtime, venlafaxine 150 mg daily, B12 one tablet daily, albuterol 2 puffs 4 hours p.r.n., Florastor 250 mg d aily, folic acid 1 mg daily, Pepcid 20 mg p.o. b.i.d. HISTORY OF PRESENTING ILLNESS: Ms. Lisa Cavanaugh is a 52-year-old female with known history of chronic h epatitis C and cirrhosis who presented to the outside emergency room with complaints of abdominal pipo n, fever, and diarrhea. She reported fever of 103.1 and increased frequency of urination, abdominal pain and dizziness. She was hemodynamically stable upon presentation and was admitted for further wo rkup. There was some question of a urinary tract infection and pneumonia upon presentation. She was started on IV antibiotics. Please see admission history and physical for further details. HOSPITAL COURSE: The patient had workup done including stool studies and blood and urine cultures. They were all negative. She was continued on IV antibiotic, but they were interrupted at the time of discharge as all the cultures are negative. I have reviewed the chest x-ray which does not show any evidence of pneumonia. Her urine cultures are negative. Blood cultures are negative except for 1/2 Bacillus, not anthracis, likely contaminant. 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 At this time, we will not be sending her home on any antibiotics as there i s no clear indication for same. She will take probiotics for next few days. She was seen and examined prior to discharge. Please see hospitalist progress note from today's date for further details including [id number] interaction. The patient continues to have some mild abdominal pain. I have reviewed her CT scan done during her last hospitalization early this month. She has no acute changes. She does have history of hep C and cirrhosis and used to see Dr. Freed in the [place] area, but then lost her insurance. At this time, I will refer her to a local gimp tacker for continuation of care. She has applied for d isability and once it comes through, she will be able to make that appointment. For now, she is inst ructed to follow with primary care physician, Dr. Armani Jackson in 5-7 days. All questions were answered and discharge plan was discussed with the patient who verbalized understa nding.
== END 2017-10-03 13:44 | disposition home or self-care (01) | DRG 392 ==
LOC: ERS 01:39 → T4-B 04:12
PROVIDERS: ADMIT Internal Medicine; ATTEND Internal Medicine
DX: R10.9 Unspecified abdominal pain (principal); E87.2 Acidosis; R19.7 Diarrhea, unspecified; B18.2 Chronic viral hepatitis C; F41.9 Anxiety disorder, unspecified; F32.9 Major depressive disorder, single episode, unspecified; D64.9 Anemia, unspecified; E87.6 Hypokalemia; R50.9 Fever, unspecified; E66.9 Obesity, unspecified; Z68.38 Body mass index [BMI] 38.0-38.9, adult; R94.5 Abnormal results of liver function studies
CPT/HCPCS: 36415; 36416; 80048; 80053; 82140; 83605; 83735; 84100; 85025; 87045; 87046; 87324; 87328; 87329; 87449; 87899; 90471; 90732; 96374; A4216; G0009; J0696; J1956; J2270